=== PATIENT | male | born 1995 | race Two or more races ===

== ENCOUNTER 2016-09-10 21:55 | Emergency (ER) | payer SELFPAY ==
[~2016-09-10] VITALS: Ht 177.8 cm; Wt 80.0 kg
[2016-09-10 23:16] VITALS: BP 110/74
== END 2016-09-11 02:00 | disposition left against medical advice (07) ==
LOC: ER 21:55
DX: K62.5 Hemorrhage of anus and rectum (principal); R14.0 Abdominal distension (gaseous); Z53.21 Procedure and treatment not carried out due to patient leaving prior to being seen by health care provider